=== PATIENT | female | born 1965 | race Caucasian/White ===

== ENCOUNTER → 2018-09-09 | Outpatient (REF) | payer OTHER ==
[2018-09-09 12:46] LABS: FERRITIN 90 NG/ML (8-252); IRON (FE) 68 UG/DL (50-170); PERCENT SATURATION 17.9 % (13.2-45.0); TOTAL IRON BINDING CAPACITY 379 UG/DL (250-450)
[2018-09-09 12:52] LABS: VITAMIN B12 LEVEL 400 PG/ML
[2018-09-09 13:10] LABS: FOLATE 15.3 NG/ML
== END ==
LOC: M LAB REF 12:05
DX: D64.9 Anemia, unspecified (principal)

== ENCOUNTER → 2023-09-16 | Outpatient (REF) | payer OTHER | LOC: M SFHCWAGY 17:48 | PROVIDERS: ATTEND Nurse Practitioner Family | DX: Z12.72 Encounter for screening for malignant neoplasm of vagina (principal) | CPT/HCPCS: 87624; G0123; G0463 ==

== ENCOUNTER → 2024-05-17 | Outpatient (REF) | payer OTHER | LOC: M LAB REF 12:45 | PROVIDERS: ATTEND Nurse Practitioner Family | DX: R19.7 Diarrhea, unspecified (principal) ==

== ENCOUNTER → 2024-12-22 | Outpatient (CLI) | payer OTHER | LOC: M RAD 08:57 | PROVIDERS: ATTEND Internal Medicine | DX: R93.49 Abnormal radiologic findings on diagnostic imaging of other urinary organs (principal) ==

== ENCOUNTER → 2025-10-03 | Outpatient (CLI) | payer OTHER ==
[2025-10-03 10:33] LABS: FREE T4 1.34 NG/DL (0.89-1.76)
[2025-10-03 10:34] LABS: CORTISOL AM 12.4 UG/DL (4.3-22.4)
== END ==
LOC: M LAB 09:07
PROVIDERS: ATTEND Nurse Practitioner Family
DX: R63.5 Abnormal weight gain (principal)